=== PATIENT | female | born 1970 | race Caucasian/White ===

== ENCOUNTER → 2020-02-26 | Outpatient (CLI) | payer BC | LOC: RAD 08:21 | DX: M43.24 Fusion of spine, thoracic region (principal); R29.890 Loss of height ==

== ENCOUNTER → 2020-03-12 | Outpatient (CLI) | payer BC, OTHER | LOC: MRI 10:57 | DX: M50.11 Cervical disc disorder with radiculopathy, high cervical region (principal); M48.02 Spinal stenosis, cervical region; M47.22 Other spondylosis with radiculopathy, cervical region ==